=== PATIENT | female | born 1960 | race African-American/Black ===

== ENCOUNTER 2021-09-14 09:50 | Emergency (ER) | payer MEDICAID ==
[~2021-09-14] VITALS: Ht 165.1 cm; Wt 75.0 kg
[2021-09-14 10:10] VITALS: BP 154/80
== END 2021-09-14 11:50 | disposition left against medical advice (07) ==
LOC: ER 09:50
DX: Z53.21 Procedure and treatment not carried out due to patient leaving prior to being seen by health care provider (principal)

== ENCOUNTER 2022-09-26 20:37 | Emergency (ER) | payer MEDICAID ==
[~2022-09-26] VITALS: Ht 180.3 cm; Wt 93.5 kg
[2022-09-26 21:35] VITALS: BP 141/68
[2022-09-26] MEDS ORDERED: CETI10CA11 MT (22:41)
[2022-09-26] MEDS ORDERED: AMLO2.5T45 MT (22:41)
[2022-09-26] MEDS ORDERED: CETIRIZINE 10MG TABLET PO SCH (22:45)
[2022-09-26] MEDS ORDERED: DIPHENHYDRAMINE 25MG CAPSULE PO ONE (23:00)
== END 2022-09-27 01:44 | disposition home or self-care (01) ==
LOC: ER 20:37
DX: Z76.0 Encounter for issue of repeat prescription (principal); I10 Essential (primary) hypertension
CPT/HCPCS: 99283